=== PATIENT | male | born 1960 | race African-American/Black ===

== ENCOUNTER 2017-07-01 08:51 | Emergency (ER) | payer MEDICARE, MEDICAID ==
[~2017-07-01] VITALS: Ht 188 cm; Wt 82.0 kg
[2017-07-01] MEDS ORDERED: TETANUS, DIPHTHERIA, PERTUSSIS VAC/PF 0.5ML (>7YR OLD) IM ONE (20:45)
[2017-07-01 23:00] VITALS: BP 127/85
== END 2017-07-01 23:07 | disposition home or self-care (01) ==
LOC: ER 09:12
DX: S00.11XA Contusion of right eyelid and periocular area, initial encounter (principal); S00.83XA Contusion of other part of head, initial encounter; K04.7 Periapical abscess without sinus; B96.89 Other specified bacterial agents as the cause of diseases classified elsewhere; J01.90 Acute sinusitis, unspecified; F12.10 Cannabis abuse, uncomplicated
CPT/HCPCS: 70450; 70486; 90715; 99284

== ENCOUNTER 2020-05-19 13:48 | Emergency (ER) | payer MEDICARE, MEDICAID ==
[~2020-05-19] VITALS: Ht 188 cm; Wt 84.0 kg
[2020-05-19] MEDS ORDERED: KETOROLAC 30MG/ML VIAL IM ONE (15:30)
[2020-05-19] MEDS ORDERED: IBUPROFEN 600MG TABLET PO ONE (16:30)
[2020-05-19 16:54] VITALS: BP 133/85
== END 2020-05-19 17:04 | disposition home or self-care (01) ==
LOC: ER 14:01
DX: S22.31XA Fracture of one rib, right side, initial encounter for closed fracture (principal); F12.10 Cannabis abuse, uncomplicated; X58.XXXA Exposure to other specified factors, initial encounter; Y93.89 Activity, other specified; Y92.89 Other specified places as the place of occurrence of the external cause; Y99.8 Other external cause status
CPT/HCPCS: 71101; 99283; J1885

== ENCOUNTER 2020-05-21 12:14 | Emergency (ER) | payer MEDICARE, MEDICAID | END 2020-05-21 13:18 | disposition left against medical advice (07) | LOC: ER 12:14 | DX: R68.89 Other general symptoms and signs (principal); Z53.21 Procedure and treatment not carried out due to patient leaving prior to being seen by health care provider ==

== ENCOUNTER 2020-07-04 10:59 | Emergency (ER) | payer MEDICARE, MEDICAID ==
[~2020-07-04] VITALS: Ht 188 cm; Wt 82.0 kg
[2020-07-04 11:01] VITALS: BP 102/62
[2020-07-04] MEDS ORDERED: IBUPROFEN 600MG TABLET PO STA (11:11)
[2020-07-04] MEDS ORDERED: BACITRACIN ZINC OINT UDPKT TOP ONE (11:15)
[2020-07-04] MEDS ORDERED: AMOXICILLIN/POTASSIUM CLAVULANATE 875/125MG TAB PO ONE (11:15)
[2020-07-04] MEDS ORDERED: IBUP-2029 PO (11:20)
[2020-07-04] MEDS ORDERED: AMOX-424 MT (11:20)
== END 2020-07-04 12:53 | disposition home or self-care (01) ==
LOC: ER 10:59
DX: Z48.00 Encounter for change or removal of nonsurgical wound dressing (principal); Z87.828 Personal history of other (healed) physical injury and trauma
CPT/HCPCS: 99283

== ENCOUNTER 2020-09-17 13:54 | Emergency (ER) | payer MEDICARE, MEDICAID ==
[~2020-09-17] VITALS: Ht 188 cm; Wt 93.0 kg
[~2020-09-17 13:54] MED LIST: AMOX-424 MT; IBUP-2029 PO
[2020-09-17] MEDS ORDERED: SODIUM CHLORIDE 0.9% 1,000 ML IV ONE (14:00)
[2020-09-17 15:18] LABS: BASOPHILS % 0.7 % (0.0-2.0); EOSINOPHILS % 1.6 % (0.0-5.0); HEMATOCRIT. 34.8 % (42.0-52.0); HEMOGLOBIN. 12.2 g/dL (14.0-18.0); LYMPHOCYTES % 12.6 % (20.0-50.0); MEAN CORPUSCULAR HEMOGLOBIN 33.5 pg (28.0-32.0); MEAN CORPUSCULAR VOLUME 95.6 fL (80.0-94.0); MEAN PLATELET VOLUME 6.6 fl (7.4-10.4); MONOCYTES % 7.5 % (2.0-8.0); NEUTROPHILS % 77.6 % (40.0-76.0); PLATELET 337 x1000/uL (130-400); RED BLOOD CELL COUNT 3.64 mill/uL (4.7-6.1)
[2020-09-17 15:24] LABS: CHLORIDE 105 mEq/L (98-107)
[2020-09-17 15:28] LABS: ETHANOL BLOOD < 10 mg/dL
[2020-09-17 17:25] VITALS: BP 121/80
== END 2020-09-18 06:47 | disposition home or self-care (01) ==
LOC: EDBD 13:54 → ER 13:54
DX: S00.01XA Abrasion of scalp, initial encounter (principal); F12.10 Cannabis abuse, uncomplicated; E86.0 Dehydration; Z79.899 Other long term (current) drug therapy; X58.XXXA Exposure to other specified factors, initial encounter; Y93.89 Activity, other specified; Y92.89 Other specified places as the place of occurrence of the external cause; Y99.8 Other external cause status
CPT/HCPCS: 36415; 70450; 71045; 80053; 80320; 85025; 96360; 99285; J7030; G0480

== ENCOUNTER 2022-08-30 17:07 | Emergency (ER) | payer MEDICARE, MEDICAID ==
[~2022-08-30] VITALS: Ht 188 cm; Wt 82.0 kg
[2022-08-30] MEDS ORDERED: ACETAMINOPHEN 325MG TABLET PO ONE (19:45)
[2022-08-30] MEDS ORDERED: IBUPROFEN 400MG TABLET PO ONE (19:45)
[2022-08-31] MEDS ORDERED: IBUP-2028 MT (00:02)
[2022-08-31 00:45] VITALS: BP 111/55
== END 2022-08-31 00:45 | disposition home or self-care (01) ==
LOC: ER 17:07
DX: M79.672 Pain in left foot (principal)
CPT/HCPCS: 29505; 73610; 73630; 99285

== ENCOUNTER 2023-08-08 20:00 | Emergency (ER) | payer MEDICARE, MEDICAID ==
[~2023-08-08] VITALS: Ht 190.5 cm; Wt 86.0 kg
[~2023-08-08 20:00] MED LIST changes: -AMOX-424 MT; +GUAI600T26 MT; +LEVO750T68 MT
[2023-08-08 20:05] VITALS: TEMP 97.3; O2SAT 100
[2023-08-08] MEDS: HYDROCODONE/ACETAMINOPHEN 5/325MG TABLET PO ONE (20:45)
[2023-08-08] MEDS ORDERED: LIDO700A15 TP (21:25)
[2023-08-08] MEDS ORDERED: TOPUD MT (21:25)
[2023-08-08 21:41] VITALS: BP 143/78; PULSE 62; RESP 15
== END 2023-08-08 21:42 | disposition home or self-care (01) ==
LOC: ER 20:00
DX: R07.89 Other chest pain (principal); Z79.899 Other long term (current) drug therapy
CPT/HCPCS: 99283

== ENCOUNTER 2023-08-21 17:29 | Emergency (ER) | payer MEDICARE, MEDICAID ==
[~2023-08-21] VITALS: Ht 188 cm; Wt 89.8 kg
[~2023-08-21 17:29] MED LIST changes: +LIDO700A15 TP; +TOPUD MT
[2023-08-21 17:35] VITALS: O2SAT 97
[2023-08-21 19:39] LABS: BASOPHILS % 0.9 % (0.0-2.0); EOSINOPHILS % 4.1 % (0.0-5.0); HEMOGLOBIN. 12.7 g/dL (14.0-18.0); MEAN CORPUSCULAR HEMOGLOBIN 33.5 pg (28.0-32.0); MEAN CORPUSCULAR HGB CONC 34.4 g/dL (31.0-37.0); MEAN CORPUSCULAR VOLUME 97.4 fL (80.0-94.0); MEAN PLATELET VOLUME 7.1 fl (7.4-10.4); MONOCYTES % 5.1 % (2.0-8.0); NEUTROPHILS % 62.9 % (40.0-76.0); PLATELET 378 x1000/uL (130-400); RED CELL DISTRIBUTION WIDTH 13.6 % (11.6-14.6); WHITE BLOOD COUNT 7.6 x1000/uL (4.5-11.0)
[2023-08-21 19:40] LABS: CARBON DIOXIDE 30 mEq/L (21-32); CHLORIDE 107 mEq/L (98-107); POTASSIUM 4.3 mEq/L (3.5-5.1); SODIUM 141 mEq/L (136-145)
[2023-08-21 19:41] LABS: CALCIUM 9.2 mg/dL (8.7-10.4)
[2023-08-21 19:46] LABS: GLUCOSE 92 mg/dL (70-105); UREA NITROGEN BLOOD 14 mg/dL (9-23)
[2023-08-21 19:47] LABS: ALANINE AMINOTRANSFERASE 19 IU/L (10-49); ASPARTATE AMINOTRANSFERASE 24 IU/L (<34)
[2023-08-21 19:48] LABS: ALBUMIN 4.3 g/dL (3.2-4.8); BILIRUBIN TOTAL 0.3 mg/dL (0.1-1.0); PROTEIN TOTAL 7.5 g/dL (6.0-8.3)
[2023-08-21 19:52] LABS: INR 0.9; PARTIAL THROMBOPLASTIN TIME 26.8 sec (23.4-31.0); PROTHROMBIN TIME 10.4 sec (9.6-11.0)
[2023-08-21 20:01] LABS: TROPONIN I HIGH SENSITIVITY < 4 ng/L (3.0-53)
[2023-08-21] MEDS: LIDOCAINE 5% PATCH TOP STA (20:19)
[2023-08-21] MEDS ORDERED: TOPUD PO (20:22)
[2023-08-21] MEDS ORDERED: LIDO1ADH23 TP (20:22)
[2023-08-21] MEDS ORDERED: IBUP-2028 MT (20:22)
[2023-08-21] MEDS: KETOROLAC 60MG/2ML VIAL IM ONE (20:30)
[2023-08-21 20:54] VITALS: BP 138/79; PULSE 89; RESP 18; TEMP 97.7
== END 2023-08-21 20:58 | disposition home or self-care (01) ==
LOC: ER 17:29
DX: R07.81 Pleurodynia (principal); Z79.899 Other long term (current) drug therapy
CPT/HCPCS: 36415; 71045; 80053; 83880; 84484; 85025; 93005; 96372; 99285